=== PATIENT | female | born 1960 | race Caucasian/White ===

== ENCOUNTER → 2023-12-13 08:42 | Outpatient (REF) | payer OTHER, SELFPAY | LOC: WDC 08:42 | PROVIDERS: ATTENDING PHYSICIAN Obstetrics & Gynecology Gynecology; FAMILY PHYSICIAN Physician Assistant Medical | DX: Z12.31 Encounter for screening mammogram for malignant neoplasm of breast (principal) | CPT/HCPCS: 77063; 77067 ==

== ENCOUNTER → 2024-12-21 15:38 | Outpatient (REF) | payer OTHER, SELFPAY | LOC: WDC 15:38 | PROVIDERS: ATTENDING PHYSICIAN Obstetrics & Gynecology Gynecology; FAMILY PHYSICIAN Family Medicine | DX: Z12.31 Encounter for screening mammogram for malignant neoplasm of breast (principal) | CPT/HCPCS: 77063; 77067 ==

== ENCOUNTER 2025-03-19 16:27 | Emergency (ER) | payer OTHER, SELFPAY ==
[2025-03-19 16:29] VITALS: BP 124/86
[2025-03-19 16:51] LABS: Urine Character Clear (Clear)
[2025-03-19 16:56] LABS: Hematocrit 43.3 % (37.0-47.0); Hemoglobin 13.7 g/dL (12.0-16.0); Mean Corp Hgb Conc. 31.6 g/dL (33.0-37.0); Mean Corpuscular Volume 86.4 fL (81.0-99.0); Nucleated Red Blood Cells % 0 %; Platelet Count 293 10^3/uL (130-400); Red Cell Dist. Width 13.9 % (11.5-14.5)
[2025-03-19 17:04] LABS: ALT (SGPT) 33 U/L (0-35); AST (SGOT) 27 U/L (14-36); Albumin 4.9 g/dl (3.5-5.0); Alkaline Phosphatase 73 U/L (38-126); Blood Urea Nitrogen 21 mg/dl (7-17); Calcium 9.7 mg/dl (8.4-10.2); Carbon Dioxide 27 mmol/L (22-30); Chloride 102 mmol/L (98-107); Glucose 86 mg/dl (70-99); Lipase 175 U/L (23-300); Potassium 3.9 mmol/L (3.5-5.1); Sodium 136 mmol/L (135-145); Total Protein 7.5 g/dl (6.3-8.2); eGFR > 60.00
[2025-03-19 20:12] VITALS: BMI 28.2
[2025-03-19 20:17] VITALS: BP 130/68
--- NOTE | 2025-03-19 20:56 | ED.GENMED ---
History of Present Illness
General
Chief Complaint: Abdominal Symptoms
Time Seen by Provider: 03/19/25 20:10
History of Present Illness
History of Present Illness:
64-year-old female with history of hypertension presents to the emergency department for evaluation of epigastric and periumbilical abdominal pain for the past week. She reports pain seems to worsen after eating however not immediately. Pain is
constant but does have occasional colicky waves of increased pain. No fevers, vomiting, diarrhea, or chills. Prior abdominal surgical history includes cholecystectomy
Past History
Past History
ED Past Medical History: HTN and Other (migraines)
Social History
Alcohol: Occasional
Personal:
Living: with family
Employment: Employed
Family History
Family History: Other
Review of Systems
Review of Systems
Allergies reviewed?: Yes
All Other Systems: ROS reviewed and negative except as documented in HPI and ROS
Phy Exam
Physical Exam
Physical Exam:
GEN: Well appearing, NAD, WDWN
HEENT: Oral mucosa moist, no scleral icterus
Cardiac: Regular rate
Lung: No respiratory distress, no tachypnea
Abdomen: Soft, tender to the epigastrium, no rigidity
MSK: No gross deformity or injuries
Skin: Good color, no pallor or jaundice, no rashes
Neuro: AO x3, moves all extremities freely
Psych: Calm, cooperative
Course
Orders/Labs/Results
Orders:
Orders
03/19/25 16:38
Urinalysis Reflex To Culture Urgent
Date Specimen was Collected: 03/19/25
Time Specimen was Collected: 16:31
03/19/25 16:40
Complete Blood Count/With Diff Urgent
Comprehensive Metabolic Panel Urgent
Lipase Urgent
03/19/25 20:56
CT Abd/Pel (IV only)-DH only Urgent
Comment:
Reason For Exam: abd pain
Abnormal Lab Results
03/19/25
16:40
MCHC 31.6 L g/dL
(33.0-37.0)
MPV 10.8 H fL
(7.4-10.4)
Absolute Monos (auto) 0.9 H 10^3/uL
(0.1-0.6)
BUN 21 H mg/dl
(7-17)
03/19/25 16:40
03/19/25 16:40
Vital Signs
Initial and Last Documented VS:
Initial Vital Signs
Temp Pulse Resp BP Pulse Ox
98.8 F 79 15 124/86 99
03/19/25 16:29 03/19/25 16:29 03/19/25 16:29 03/19/25 16:29 03/19/25 16:29
Last Documented Vital Signs
Temp Pulse Resp BP Pulse Ox
98.8 F 79 18 127/74 99
03/19/25 16:29 03/19/25 16:29 03/19/25 22:33 03/19/25 22:33 03/19/25 20:58
MDM/Problems Addressed
MDM/Problems Addressed:
Labs and CT showed no evidence for acute pathology. Given that her pain is almost immediately postprandial and she has reproducible epigastric tenderness will treat for presumed gastritis/peptic ulcer disease although she has no significant risk
factors for PUD. Recommend primary care follow-up as an outpatient
*Pulse Oximetry
SaO2: 99
Oxygen Mode of Delivery: Room air
Patient hypoxic: no
*Critical Care Note
Total Time (30-74mins, 75-104mins- exclusive of procedures): Not Applicable
ED Attending Note
-
Portions of this chart may have been created with voice recognition software.� Occasional wrong word or��sound alike� substitutions may have occurred due to the inherent limitations of voice recognition software.
Discharge Plan
Departure
Patient Disposition: Home (Routine Discharge)
Date of Disposition: 03/19/25
Time of Disposition: 22:23
Patient with high blood pressure during this ER visit?: No
Discharge Problem:
Gastritis
Instructions: Gastritis - ED (DC)
Prescriptions:
New
pantoprazole 40 mg tablet,delayed release (DR/EC)
40 mg PO DAILY Qty: 20 0RF
No Action
venlafaxine [Effexor] 75 MG tablet
75 mg PO BID
losartan [Cozaar] 100 MG tablet
50 mg PO DAILY
multivitamin with folic acid [Tab-A-Andrés] 1 TABLET tablet
1 tab PO DAILY
doxycycline hyclate 100 MG capsule
100 mg PO Q12 Qty: 8 0RF
ibuprofen 400 MG tablet
400 mg PO Q6HPRN PRN (Reason: mild pain) 0RF
cholecalciferol (vitamin D3) 2,000 UNITS tablet
2,000 units PO DAILY 0RF
pantoprazole 40 MG tablet,delayed release (DR/EC)
40 mg PO DAILY Qty: 7 0RF
Referrals:
UNKNOWN - PT DOES,NOT KNOW [Unknown Provider]
Interventions
Interventions:
*Risk Screen - Suicide Last Done: 03/19/25 16:29
*General Assessment Last Done: 03/19/25 16:29
*Neglect/Abuse Screening Last Done: 03/19/25 16:29
*ED- Fall Risk Assessment Last Done: 03/19/25 20:12
*ED COVID-19 Vaccine History Last Done: 03/19/25 16:29
*ED Influenza Vaccine History Last Done: 03/19/25 16:29
*Nursing Disposition Last Done: 03/19/25 22:39
YF-Gqjlns-Wlaaxqgquv Assessment Last Done: 03/19/25 20:14
Discharge Date and Time
Discharge Date/Time: 03/19/25 22:41
Print Language: FIJIAN
[2025-03-19 22:33] VITALS: BP 127/74
== END 2025-03-19 22:41 | disposition home or self-care (01) ==
LOC: EMR 16:27
PROVIDERS: Emergency Medicine; EMERGENCY PHYSICIAN Emergency Medicine; FAMILY PHYSICIAN Family Medicine
DX: K29.70 Gastritis, unspecified, without bleeding (principal); R10.33 Periumbilical pain; I10 Essential (primary) hypertension; Z90.49 Acquired absence of other specified parts of digestive tract
CPT/HCPCS: 99284; 74177; 80053; 81003; 83690; 85025; Q9967